=== PATIENT | female | born 2000 | race American Indian/Alaskan Native ===

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

== ENCOUNTER 2018-11-03 16:31 | Emergency (ER) | payer OTHER ==
[2018-11-03 17:12] VITALS: BP 115/78; PULSE 82; RESP 20; TEMP 99.2; O2SAT 100
--- NOTE | 2018-11-03 18:00 | C.PDOC ---
History Of Present Illness 18 year old female presents to the ED with mother for possible allergic reaction to cashew nuts. Reports she ate cereal with cashew milk and later had raw cashews for the first time. States she later developed swelling to both eyes and itchy throat. Reports some improvement after mother gave Benadryl 50mg PO but presents to the ED for further evaluation. Denies SOB, chest pain, wheezing, nausea, vomiting, diarrhea, or abdominal pain. Time Seen by Provider: 11/03/18 17:05 Chief Complaint (Nursing): Allergic Reaction History Per: Patient History/Exam Limitations: no limitations Onset/Duration Of Symptoms: Hrs Current Symptoms Are (Timing): Still Present Context: Food Associated Symptoms: Swelling Home/EMS Treatment: Benadryl Past Medical History Reviewed: Historical Data, Nursing Documentation, Vital Signs Vital Signs: Last Vital Signs Temp 99.2 F 11/03/18 16:45 Pulse 82 11/03/18 16:45 Resp 20 11/03/18 16:45 BP 115/78 11/03/18 16:45 Pulse Ox 100 11/03/18 16:45 - Medical History PMH: Asthma Surgical History: No Surg Hx Family History: States: No Known Family Hx - Social History Hx Alcohol Use: No Hx Substance Use: No - Immunization History Hx Tetanus Toxoid Vaccination: Yes Hx Influenza Vaccination: Yes Hx Pneumococcal Vaccination: No Review Of Systems Constitutional: Negative for: Fever, Chills Eyes: Positive for: Other (eye swelling ) ENT: Positive for: Throat Swelling Cardiovascular: Negative for: Chest Pain Respiratory: Negative for: Shortness of Breath, Wheezing Gastrointestinal: Negative for: Nausea, Vomiting, Abdominal Pain, Diarrhea Physical Exam - Physical Exam Appears: Non-toxic, No Acute Distress Skin: Warm, Dry, No Rash Head: Normacephalic Eye(s): bilateral: Normal Inspection, Other (chemosis to bilateral conjunctiva, slight injection ) Ear(s): Bilateral: Normal Nose: Normal Oral Mucosa: Moist Tongue: Normal Appearing Lips: Normal Appearing Teeth: Normal Dentition Gingiva: Normal Appearing Throat: Normal, No Erythema Neck: Supple Chest: Symmetrical Cardiovascular: Rhythm Regular Respiratory: Normal Breath Sounds, No Accessory Muscle Use, No Wheezing Neurological/Psych: Oriented x3, Normal Speech Gait: Steady ED Course And Treatment O2 Sat by Pulse Oximetry: 100 (RA) Pulse Ox Interpretation: Normal Medical Decision Making Medical Decision Making: Plan - Pepcid 30mg PO and Prednisone 60mg PO given now and will continue with the add ition of Benadryl for 5 days Patient is resting comfortably, tolerating PO, has no shortness of breath, has no intra-oral swelling, no stridor. Patient notes that pruritus has improved. Patient was advised to avoid potential allergens, and to follow up with physician in 1-2 days. Patient verbalizes understanding and is in agreement with plan. Patient is stable for discharge. Disposition Counseled Patient/Family Regarding: Diagnosis, Need For Followup, Rx Given - Disposition Referrals: Avelino Jaimes DO [Medical Doctor] - Kelton Hirsch MD [Medical Doctor] - Gabrielle Sánchez PA [Physician Community Health Advocate] - Darvin Waterman MD [Staff Provider] - Disposition: HOME/ ROUTINE Disposition Time: 17:56 Condition: STABLE Additional Instructions: Continue Benadryl, Pepcid, and Prednisone as instructed Place ice pack or cold compresses to the eyes to reduce swelling Follow up with [employer] for food allergy testing Return to ED if symptoms worsen Prescriptions: DiphenhydrAMINE [Benadryl] 25 mg PO BID #14 cap Famotidine [Pepcid] 20 mg PO DAILY #14 tab predniSONE [predniSONE Tab] 60 mg PO DAILY #15 tab Instructions: Food Allergy (ED) Forms: Accompanied To ED By:, [employer] ([place]) - Clinical Impression Clinical Impression: Allergic reaction to food, Chemosis of conjunctiva of both eyes - PA / [employer] / Resident Statement / has reviewed & agrees with the documentation as recorded. - Scribe Statement The provider has reviewed the documentation as recorded by the Ofe Echevarria All medical record entries made by the Ofe were at my direction and personally dictated by me. I have reviewed the chart and agree that the record accurately reflects my personal performance of the history, physical exam, medical decision making, and the department course for this patient. I have also personally directed, reviewed, and agree with the discharge instructions and disposition.
== END 2018-11-03 18:10 | disposition home or self-care (01) ==
LOC: C.ER 16:31
DX: T78.1XXA Other adverse food reactions, not elsewhere classified, initial encounter (principal); H11.423 Conjunctival edema, bilateral